=== PATIENT | female | born 1970 | race Caucasian/White ===

== ENCOUNTER 2017-06-16 18:35 | Emergency (ER) | payer OTHER ==
[2017-06-16 18:39] VITALS: BMI 31.6
[2017-06-16 18:54] VITALS: TEMP 98.7
--- NOTE | 2017-06-16 19:05 | PDOC ---
History of Present Illness - General History Source: Patient Exam Limitations: No Limitations - History of Present Illness Initial Comments: 06/16/17 19:45 The patient is a 46-year-old female, with a significant past medical history of HTN and hyperthyroidism, who presents to the ED with high blood pressure. Pt was seen at an urgent care today for a cough and her BP was noted to be high in the 200s. She reports that she has not taken her BP medication in 2 weeks since she ran out and was unable to refill her prescription due to insurance issues. Pt was able to burr picker her prescription prior to her arrival to the ED and took one dose of it. Pt reports that she feels hot. She denies any weakness or numbness. She denies any fever, chills, nausea, vomiting, diarrhea, or abdominal pain. She denies any shortness of breath or chest pain. The patient denies any shortness of breath or any other symptoms at this time. PAST MEDICAL HISTORY: HTN and hyperthyroidism PAST SURGICAL HISTORY: no significant history FAMILY HISTORY: no pertinent history SOCIAL HISTORY: Pt lives with family and is employed. MEDICATIONS: reviewed ALLERGIES: As per nursing notes ROS General: No fevers or chills, no weakness, no weight loss HEENT: No change in vision. No sore throat,. No ear pain CardioVascular: No chest pain or shortness of breath Respiratory: (+)cough. No wheezing. Gastrointestinal: no nausea, vomiting, diarrhea or constipation, No rectal bleeding Genitourinary: No dysuria, hematuria, or frequency Musculoskeletal: No joint or muscle pain or swelling Neurologic: No headache, vertigo, dizziness or loss of consciousness Psychiatric: nor depression Skin: No rashes or easy bruising Endocrine: no increased thirst or abnormal weight change Allergic: no skin or latex allergy All other systems reviewed and normal PE General: Well-nourished well-developed individual, no acute distress HEENT: Throat: Normal, tonsils normal, no erythema or exudate Neck: Supple, no meningeal signs, no lymphadenopathy Eyes::Pupils equal reactive and round, extraocular motion intact Chest: Nontender to palpation Cardiac: (+)2/6 systolic murmur. S1-S2 normal, regular rate and rhythm, no rubs or gallops Respiratory: Lungs clear to auscultation bilateral Abdomen: Soft, nondistended, normal bowel sounds, nontender to palpation diffusely Extremities: Warm, dry, no cyanosis, clubbing, or edema Skin: No rashes Neuro: Alert and oriented x3, nonfocal exam, grossly intact, normal gait Psych: Normal mood and affect <Sharyn Parra - Last Filed: 06/16/17 20:29> - History of Present Illness Initial Comments: 06/16/17 20:36 A portion of this note was documented by scribe services under my direction. I have reviewed the details of the note, within reason, and agree with the documentation. The case summary and management plan written by me. Assessment and plan: This is a 46-year-old female who comes in complaining of hypertension. Patient said she was sent here from the urgent care center where she had gone for evaluation of a upper respiratory tract infection. Patient said the urgent care center started her on doxycycline and gave her a prescription for prednisone. Patient has a history of hypertension and ran out of her medications 2 week. Patient got her prescription refilled prior to coming in and did take up one of her pills for hypertension. Patient blood pressure was initially high on arrival here and over the course of her stay here it declined from a high systolic of 245-180. Patient has no evidence of end organ damage. Patient otherwise has no complaints. Patient cardiogram that did show normal sinus rhythm with some minimal voltage criteria for LVH and a prolonged QT otherwise no acute ST-T wave changes. Patient's exam was normal with the exception of a systolic murmur which patient said she has had times many years. Patient given copy of her cardiogram. Patient reassured to that if she is restarts her medication that her blood pressure will improve however patient is due for a complete physical from her primary care physician and also was told to call her primary care doctor in the morning and get a appointment for a physical and to follow-up. Patient discharged home <Vernell Guerrero I - Last Filed: 06/16/17 20:42> - General Chief Complaint: Blood Pressure Problem Stated Complaint: HTN Time Seen by Provider: 06/16/17 19:01 Past History <Sharyn Parra - Last Filed: 06/16/17 20:29> - Past Medical History COPD: No HTN: Yes Thyroid Disease: Yes (hypothyroid) - Suicide/Smoking/Psychosocial Hx Smoking Status: No Smoking History: Never smoked Number of Cigarettes Smoked Daily: 0 Hx Alcohol Use: No Drug/Substance Use Hx: No Substance Use Type: None <Vernell Guerrero I - Last Filed: 06/16/17 20:42> - Past Medical History Allergies/Adverse Reactions: Allergies Allergy/AdvReac Type Severity Reaction Status Date / Time No Known Allergies Allergy Verified 06/16/17 18:36 Home Medications: Ambulatory Orders Valsartan [Diovan] 80 mg PO DAILY 06/16/17 Review of Systems - Review of Systems Able to Perform ROS?: Yes <Sharyn Parra - Last Filed: 06/16/17 20:29> *Physical Exam - Vital Signs Last Vital Signs Temp Pulse Resp BP Pulse Ox 98.7 F 102 H 18 217/95 97 06/16/17 18:36 06/16/17 18:36 06/16/17 18:36 06/16/17 18:36 06/16/17 18:36 <Sharyn Parra - Last Filed: 06/16/17 20:29> - Vital Signs Last Vital Signs Temp Pulse Resp BP Pulse Ox 98.7 F 102 H 18 217/95 97 06/16/17 18:36 06/16/17 18:36 06/16/17 18:36 06/16/17 18:36 06/16/17 18:36 <Vernell Guerrero I - Last Filed: 06/16/17 20:42> *DC/Admit/Observation/Transfer - Attestations Scribe Attestion: 06/16/17 19:53 Documentation prepared by Sharyn Parra, acting as medical center director for Vernell Guerrero MD. <Sharyn Parra - Last Filed: 06/16/17 20:29> - Discharge Dispostion Admit: No <Vernell Guerrero I - Last Filed: 06/16/17 20:42> Diagnosis at time of Disposition: Essential hypertension, Viral upper respiratory tract infection - Discharge Dispostion Disposition: HOME Condition at time of disposition: Stable - Referrals Referrals: Kendall Hernandez MD [Primary Care Provider] - - Patient Instructions Printed Discharge Instructions: DI for High Blood Pressure, How to Monitor Your Blood Pressure at Home Additional Instructions: Take your medication for your blood pressure as prescribed. You can also continue to take the Mucinex but avoid Robitussin and other over- the-counter cough medications. Take your medication at the urgent care center prescribed for you. Call your doctor in the morning and get an appointment for a complete physical. Return to the emergency department immediately with ANY new, persistent or worsening symptoms. Continue any medications as previously prescribed by your physician. You should follow up with your primary doctor as soon as possible regarding today's emergency department visit. . Please make sure your doctor reviews the results of your emergency evaluation. Thank you for coming to the Emergency Department today for your care. It was a pleasure to see you today. Please note that your evaluation is INCOMPLETE until you follow-up with your doctor. - Post Discharge Activity
[2017-06-16 20:29] VITALS: BP 180/93; PULSE 78
--- NOTE | 2017-06-17 09:32 | EKG ---
Test Reason : Blood Pressure : / mmHG Vent. Rate : 081 BPM Atrial Rate : 081 BPM P-R Int : 164 ms QRS Dur : 088 ms QT Int : 428 ms P-R-T Axes : 049 060 042 degrees QTc Int : 497 ms NORMAL SINUS RHYTHM MINIMAL VOLTAGE CRITERIA FOR LVH, MAY BE NORMAL VARIANT PROLONGED QT ABNORMAL ECG WHEN COMPARED WITH ECG OF 28-OCT-2011 10:10, NO SIGNIFICANT CHANGE WAS FOUND Confirmed by JEANCARLOS ORTIZ, KARLENE ([id number]) on 06/17/2017 9:31:33 AM Referred By: DR BUCKLEY Confirmed By:KARLENE ARSHAD MD
== END 2017-06-16 20:46 | disposition home or self-care (01) ==
LOC: FER 18:35
DX: I10 Essential (primary) hypertension (principal); J06.9 Acute upper respiratory infection, unspecified; E05.90 Thyrotoxicosis, unspecified without thyrotoxic crisis or storm
CPT/HCPCS: 93005; 99282-25

== ENCOUNTER 2018-03-31 19:25 | Emergency (ER) | payer OTHER ==
[2018-03-31 19:32] VITALS: TEMP 98.3; BMI 29.9
--- NOTE | 2018-03-31 20:17 | PDOC ---
History of Present Illness - General History Source: Patient Exam Limitations: No Limitations - History of Present Illness Initial Comments: 03/31/18 20:43 The patient is a 47 year old female with a significant past medical history of thyroid nodules and HTN who presents to the ER sent in by PCP, Dr. Hernandez, for blood work. Patient saw her PCP today who told her he was concerned about anemia and wanted her to come to the ER for further evaluation. Patient denies any history of anemia. Patient denies blood in the stool, or rectal bleeding. Denies easy bruising or excessive bleeding. Patient denies any shortness of breath. Patient states that from August 2017 up until January 2018 she was having heavy menstrual cycles, lasting 3 weeks at a time. Patient was prescribed a medication which she took for tens days and reports that her menstrual periods are regular again. Of note, patient is also complaining of left jaw pain. Patient reports her PCP thought it might be TMJ. Patient reports relief after taking motrin or advil. The patient denies chest pain, shortness of breath, headache, and dizziness. Denies fever, chills, nausea, vomit, diarrhea, and constipation. Denies dysuria, frequency, urgency, and hematuria. Allergies: NKA Past surgical history: None reported. Social history: No reported alcohol, drug, or cigarette use. PCP: Dr. Hernandez <Elinor Mancini - Last Filed: 03/31/18 23:41> <Sherrie Keller - Last Filed: 04/01/18 06:12> - General Chief Complaint: Edema Stated Complaint: SENT BY PMD/BLOOD WORK Time Seen by Provider: 03/31/18 19:40 Past History <Elinor Mancini - Last Filed: 03/31/18 23:41> - Past Medical History COPD: No HTN: Yes Thyroid Disease: Yes (hypothyroid) - Suicide/Smoking/Psychosocial Hx Smoking Status: No Smoking History: Unknown if ever smoked Have you smoked in the past 12 months: No Number of Cigarettes Smoked Daily: 0 Information on smoking cessation initiated: No Hx Alcohol Use: No Drug/Substance Use Hx: No Substance Use Type: None <Sherrie Keller - Last Filed: 04/01/18 06:12> - Past Medical History Allergies/Adverse Reactions: Allergies Allergy/AdvReac Type Severity Reaction Status Date / Time No Known Allergies Allergy Verified 12/12/17 18:36 Home Medications: Ambulatory Orders Valsartan [Diovan] 80 mg PO DAILY 06/16/17 Diclofenac Sodium [Voltaren -] 75 mg PO BID PRN #20 tablet. 03/31/18 Ferrous Sulfate [Feosol] 325 mg PO DAILY #30 tablet 03/31/18 Review of Systems - Review of Systems Able to Perform ROS?: Yes Comments:: 03/31/18 20:44 All systems are reviewed and negative except as noted in the HPI <Elinor Mancini - Last Filed: 03/31/18 23:41> *Physical Exam - Vital Signs Last Vital Signs Temp Pulse Resp BP Pulse Ox 98.3 F 84 14 196/88 H 100 03/31/18 19:29 03/31/18 19:29 03/31/18 19:29 03/31/18 19:29 03/31/18 19:29 - Physical Exam Comments: 03/31/18 20:44 GENERAL: Awake, alert, and fully oriented, in no acute distress HEAD: No signs of trauma EYES: PERRLA, EOMI, sclera anicteric, conjunctiva clear ENT: Auricles normal inspection, hearing grossly normal, nares patent, oropharynx clear without exudates. Moist mucosa (+) Minimal tenderness of her TMJ joint. NECK: Normal ROM, supple, no lymphadenopathy, JVD, or masses LUNGS: Breath sounds equal, clear to auscultation bilaterally. No wheezes, and no crackles HEART: (+) 3/7 systolic murmur best heard over the right and left intercostal spaces radiating to the bilateral carotid arteries. Regular rate and rhythm, normal S1 and S2, no rubs or gallops ABDOMEN: Soft, nontender, normoactive bowel sounds. No guarding, no rebound. No masses EXTREMITIES: Normal range of motion, no edema. No clubbing or cyanosis. No cords, erythema, or tenderness NEUROLOGICAL: Cranial nerves II through XII grossly intact. Normal speech, normal gait SKIN: Warm, Dry, normal turgor, no rashes or lesions noted. <Elinor Mancini - Last Filed: 03/31/18 23:41> - Vital Signs Last Vital Signs Temp Pulse Resp BP Pulse Ox 98.3 F 84 14 196/88 H 100 03/31/18 19:29 03/31/18 19:29 03/31/18 19:29 03/31/18 19:29 03/31/18 19:29 <Sherrie Keller - Last Filed: 04/01/18 06:12> ED Treatment Course - LABORATORY CBC & Chemistry Diagram: 03/31/18 21:10 03/31/18 21:11 <Elinor Mancini - Last Filed: 03/31/18 23:41> - LABORATORY CBC & Chemistry Diagram: 03/31/18 21:10 03/31/18 21:11 <Sherrie Keller - Last Filed: 04/01/18 06:12> Medical Decision Making - Medical Decision Making Documentation has been prepared under my direction and personally reviewed by me in its entirety. I attest that this documented accurately reflects all work, treatment, procedures and medical decision making performed by me. As noted above, this 47-year-old woman with a history of hypertension/thyroid nodules was sent to the ER by her PMD, Dr. Hernandez because he suspected that she might be anemic. Patient has had a history of multiple heavy menstrual cycles earlier this year. Exam as noted. Laboratory workup does reveal mild to moderate microcytic anemia with hemoglobin of 8.7/hematocrit 28.7; MCV69.7 12-lead electrocardiogram was performed and interpreted by me. This showed normal sinus rhythm at 84 bpm; there was borderline LVH but no other abnormalities. Remainder of the laboratory workup, including troponin and chemistry profile, this essentially normal. Bilateral TMJ x-ray studies were performed to rule out acute pathology in the area of the left mandibular angle (where patient has significant pain). No significant abnormality is seen. (Interpretation by of the radiology staff). Results discussed with Dr. Hernandez. The patient will be referred to gauntlet pairer, Dr. Avila. Meanwhile, as per Dr. Hernandez, iron supplementation will be started along with vitamin C. Patient will also follow up with cardiology for control of her hypertension. Although the patient has significant hypertension, she had not seen her PMD since July of this year. During that time, she was on a lower dose of Valsartan. It is very likely that blood pressure readings tonight are her baseline. Since she has just been increased to 160 mg of valsartan and (twice the dose she had been taking earlier this year), her blood pressure will be decreased gradually in an incremental fashion. <Sherrie Keller - Last Filed: 04/01/18 06:12> *DC/Admit/Observation/Transfer - Attestations Scribe Attestion: 03/31/18 20:45 Documentation prepared by Elinor Mancini, acting as medical record librarian for Sherrie Keller MD. <Elinor Mancini - Last Filed: 03/31/18 23:41> <Sherrie Keller - Last Filed: 04/01/18 06:12> Diagnosis at time of Disposition: Microcytic anemia, Jaw pain - Discharge Dispostion Disposition: HOME Condition at time of disposition: Stable - Prescriptions Prescriptions: Diclofenac Sodium [Voltaren -] 75 mg PO BID PRN #20 tablet. PRN Reason: Pain Ferrous Sulfate [Feosol] 325 mg PO DAILY #30 tablet - Referrals Referrals: Kendall Hernandez MD [Primary Care Provider] - Berny Avila MD [Staff Physician] - Jake Chin MD [Staff Physician] - - Patient Instructions Printed Discharge Instructions: Iron-Deficiency Anemia Additional Instructions: Ferrous sulfate 325 mg daily/jeanmarie C 500 mg daily Call gauntlet pairer (Dr. Avila) tomorrow to arrange follow-up as discussed Call ENT doctor (Dr. Chin group) tomorrow to arrange follow-up Diclofenac 75 mg twice a day as needed for jaw pain (take with food Continue valsartan and as prescribed by Dr. Hernandez Follow-up with product safety lead as suggested by Dr. Hernandez Follow-up with Dr. Hernandez within the next week Return to the ER if you have severe pain or weakness - Post Discharge Activity
[2018-03-31 21:27] LABS: HEMATOCRIT 28.7 % (32.4-45.2); HEMOGLOBIN 8.7 GM/dl (10.7-15.3); MCH 21.3 pg (25.7-33.7); MCHC 30.5 g/dl (32.0-36.0); MEAN CELL VOLUME 69.7 fl (80-96); MEAN PLT VOLUME 8.6 fl (7.5-11.1); PLATELET COUNT 350 K/MM3 (134-434); RBC 4.11 M/mm3 (3.60-5.2); RDW 18.6 % (11.6-15.6); WHITE BLOOD COUNT 9.7 K/mm3 (4.0-10.8)
[2018-03-31 21:30] LABS: INR 0.99 (0.82-1.09); PROTHROMBIN TIME (PATIENT) 11.1 SEC (10.2-13.0)
[2018-03-31 21:35] LABS: ALBUMIN 3.8 g/dl (3.5-5.0); ALK PHOS 50 U/L (32-92); ANION GAP 6 MMOL/L (8-16); BILIRUBIN,TOTAL 0.4 mg/dl (0.2-1.0); BLOOD UREA NITROGEN 12 mg/dl (7-18); CALCIUM 8.5 mg/dl (8.4-10.2); CHLORIDE 105 mmol/L (98-107); CO2 27 mmol/L (22-28); CREATININE 0.8 mg/dl (0.6-1.3); GLUCOSE,RANDOM 92 mg/dl (74-106); POTASSIUM 3.7 mmol/L (3.5-5.1); SGOT/AST 23 U/L (10-42); SGPT/ALT 24 U/L (10-40); SODIUM 138 mmol/L (136-145); TOT PROT 7.1 g/dl (6.4-8.3)
[2018-03-31 22:01] LABS: PLATELET ESTIMATE SLT INCREASE
[2018-03-31 22:03] LABS: ANISOCYTOSIS 2+
[2018-03-31 22:27] LABS: HCG,QUALITATIVE URINE Negative
[2018-03-31 22:31] LABS: PH,URINE 7.5 (4.5-8); URINE APPEARANCE Clear; URINE BILIRUBIN Negative (NEGATIVE); URINE COLOR Pink; URINE GLUCOSE (UA) Negative (NEGATIVE); URINE KETONE Negative (NEGATIVE); URINE LEUK ESTERASE TRACE (NEGATIVE); URINE NITRITE Negative (NEGATIVE); URINE PROTEIN Negative (NEGATIVE); URINE UROBILINOGEN 0.2 (0.2-1.0)
[2018-03-31 22:36] LABS: URINE RBC MANY /hpf (0-3)
[2018-03-31 22:37] LABS: EPI CELLS FEW /HPF; URINE BACTERIA FEW /hpf (NEGATIVE)
[2018-03-31 23:41] VITALS: BP 156/100; PULSE 76
--- NOTE | 2018-04-01 09:39 | EKG ---
Test Reason : Blood Pressure : / mmHG Vent. Rate : 075 BPM Atrial Rate : 075 BPM P-R Int : 162 ms QRS Dur : 090 ms QT Int : 408 ms P-R-T Axes : 036 066 049 degrees QTc Int : 455 ms NORMAL SINUS RHYTHM MINIMAL VOLTAGE CRITERIA FOR LVH, MAY BE NORMAL VARIANT BORDERLINE ECG WHEN COMPARED WITH ECG OF 16-JUN-2017 20:17, NO SIGNIFICANT CHANGE WAS FOUND Confirmed by DONNY SUTHERLAND MD ([id number]) on 04/01/2018 9:38:42 AM Referred By: MD MCDANIELS Confirmed By:DONNY SUTHERLAND MD
== END 2018-03-31 23:42 | disposition home or self-care (01) ==
LOC: FER 19:25
DX: D50.9 Iron deficiency anemia, unspecified (principal); R68.84 Jaw pain; I10 Essential (primary) hypertension; E04.1 Nontoxic single thyroid nodule
CPT/HCPCS: 36415; 70330-TC-FY; 80053; 81003; 81015; 82550; 84484; 84703; 85025; 85610; 93005; 99283-25

== ENCOUNTER → 2022-09-11 | Day surgery (SDC) | payer OTHER | END | disposition home or self-care (01) | LOC: JRADIR 09:33 | PROVIDERS: ATTEND Internal Medicine Endocrinology, Diabetes & Metabolism | PROC: 0GBG3ZX Excision of Left Thyroid Gland Lobe, Percutaneous Approach, Diagnostic (ICD-10-PCS; principal; 2022-09-11) | DX: E04.1 Nontoxic single thyroid nodule (principal) | CPT/HCPCS: 10005; 76942; 88173; 88305-TC ==

== ENCOUNTER 2024-08-18 21:17 | Observation (INO) | payer OTHER ==
[2024-08-18 21:21] VITALS: BMI 26.6
[2024-08-18] MEDS ORDERED: ONDANSETRON 4 MG/2 ML VIAL ONE (22:17)
[2024-08-18] MEDS ORDERED: FAMOTIDINE 20 MG/50 ML IVPB 20 MG/50 ML MG IVPB ONE (22:18)
[2024-08-18] MEDS: SODIUM CHLORIDE 0.9% 500 ML INFUS.BAG IV ONE (22:23)
[2024-08-18] MEDS: ONDANSETRON 4 MG/2 ML VIAL IVPB ONE (22:24)
[2024-08-18] MEDS: FAMOTIDINE 20 MG/50 ML IVPB 20 MG/50 ML MG IVPB ONE (22:24)
[2024-08-18 22:26] LABS: BASO % 0.3 % (0-2.0); EOS % 0.3 % (0-4.5); HEMATOCRIT 42.4 % (32.4-45.2); HEMOGLOBIN 14.2 GM/dL (10.7-15.3); MCH 30.1 pg (25.7-33.7); MCHC 33.4 g/dl (32.0-36.0); MEAN CELL VOLUME 90.1 fl (80-96); MEAN PLT VOLUME 9.2 fl (7.5-11.1); MONO % 5.8 % (3.8-10.2); NEUT % 80.6 % (42.8-82.8); PLATELET COUNT 316 10^3/uL (134-434); RDW 12.9 % (11.6-15.6); WHITE BLOOD COUNT 15.5 K/mm3 (4.0-10.0)
[2024-08-18 22:35] LABS: INR 0.95 (0.83-1.09); PROTHROMBIN TIME (PATIENT) 10.5 SEC (9.7-13.0)
[2024-08-18 22:37] LABS: ACTIVATED PTT 24.4 SECONDS (25.2-36.5)
[2024-08-18 22:43] LABS: BLOOD UREA NITROGEN 25.3 mg/dL (7-18); MAGNESIUM 2.3 mg/dL (1.8-2.4)
[2024-08-18 22:46] LABS: CREATININE 1.1 mg/dL (0.55-1.3); PHOSPHOROUS 3.9 mg/dL (2.5-4.9)
[2024-08-18 22:48] LABS: BILIRUBIN,TOTAL 0.5 mg/dL (0.2-1); TOT PROT 7.5 g/dl (6.4-8.2)
[2024-08-18 23:10] LABS: LACTIC ACID 2.3 mmol/L (0.4-2.0)
[2024-08-19 00:19] LABS: POTASSIUM 3.9 mmol/L (3.5-5.1)
[2024-08-19 00:21] LABS: CALCIUM 9.3 mg/dL (8.5-10.1)
[2024-08-19 00:22] LABS: ALBUMIN 3.7 g/dl (3.4-5.0); BLOOD UREA NITROGEN 24.3 mg/dL (7-18); MAGNESIUM 2.1 mg/dL (1.8-2.4)
[2024-08-19] MEDS: SODIUM CHLORIDE 0.9% 500 ML INFUS.BAG IV ONE (00:23)
[2024-08-19 00:27] LABS: BILIRUBIN,TOTAL 0.7 mg/dL (0.2-1); TOT PROT 7.2 g/dl (6.4-8.2)
[2024-08-19 00:29] LABS: LACTIC ACID 3.1 mmol/L (0.4-2.0)
[2024-08-19] MEDS ORDERED: MAG HYDROX/AL HYDROX/SIMETH 30 ML UNIT-DOSE CUP ONE (01:14)
[2024-08-19] MEDS: MAG HYDROX/AL HYDROX/SIMETH -MYLANTA- ORAL SUSPENSION PO ONE (01:21)
[2024-08-19 02:25] LABS: EPI CELLS 6 /uL (0-25.1); HYALINE CASTS 0 /uL (0-3.1); URINE APPEARANCE CLEAR; URINE BACTERIA 289 /uL (0-1359); URINE BILIRUBIN NEGATIVE (NEGATIVE); URINE COLOR YELLOW; URINE GLUCOSE (UA) NEGATIVE (NEGATIVE); URINE KETONE NEGATIVE (NEGATIVE); URINE LEUK ESTERASE TRACE (NEGATIVE); URINE NITRITE NEGATIVE (NEGATIVE); URINE PROTEIN NEGATIVE (NEGATIVE); URINE RBC 10 /uL (0-23.9); URINE UROBILINOGEN 0.2 mg/dL (0.2-1.0); URINE WBC 6 /uL (0-25.8)
[2024-08-19 02:55] LABS: POTASSIUM 3.6 mmol/L (3.5-5.1)
[2024-08-19 02:57] LABS: CALCIUM 8.5 mg/dL (8.5-10.1)
[2024-08-19 02:58] LABS: ALBUMIN 3.4 g/dl (3.4-5.0); BLOOD UREA NITROGEN 21.2 mg/dL (7-18)
[2024-08-19 03:01] LABS: CREATININE 0.9 mg/dL (0.55-1.3)
[2024-08-19 03:03] LABS: BILIRUBIN,TOTAL 0.6 mg/dL (0.2-1)
[2024-08-19 03:09] LABS: TOT PROT 6.6 g/dl (6.4-8.2)
[2024-08-19 03:09] LABS: LACTIC ACID 3.3 mmol/L (0.4-2.0)
[2024-08-19] MEDS ORDERED: PIPERACILLIN/TAZOB 4.5 GM 4.5 GM/100 ML BAG IVPB ONE (06:05)
[2024-08-19] MEDS: PIPERACILLIN/TAZOB 4.5 GM 4.5 GM in DEXTROSE 5%-WATER 100 ML IVPB ONE (06:12)
[2024-08-19 06:49] VITALS: RESP 17; TEMP 98.2
[2024-08-19] MEDS: DEXTROSE 5%-0.45% SALINE 1,000 ML IV SCH (06:57)
[2024-08-19 11:17] LABS: BASO % 0.4 % (0-2.0); HEMATOCRIT 39.2 % (32.4-45.2); HEMOGLOBIN 12.7 GM/dL (10.7-15.3); LYMPH % 16.8 % (8-40); MCH 29.4 pg (25.7-33.7); MCHC 32.5 g/dl (32.0-36.0); MEAN CELL VOLUME 90.5 fl (80-96); MEAN PLT VOLUME 9.1 fl (7.5-11.1); MONO % 6.6 % (3.8-10.2); NEUT % 75.2 % (42.8-82.8); PLATELET COUNT 277 10^3/uL (134-434); RBC 4.33 M/mm3 (3.60-5.2); RDW 12.7 % (11.6-15.6); WHITE BLOOD COUNT 8.8 K/mm3 (4.0-10.0)
[2024-08-19 11:36] LABS: POTASSIUM 3.7 mmol/L (3.5-5.1)
[2024-08-19 11:38] LABS: CALCIUM 8.7 mg/dL (8.5-10.1)
[2024-08-19 11:39] LABS: ALBUMIN 3.4 g/dl (3.4-5.0); BLOOD UREA NITROGEN 15.7 mg/dL (7-18)
[2024-08-19 11:42] LABS: CREATININE 0.9 mg/dL (0.55-1.3)
[2024-08-19 11:43] LABS: BILIRUBIN,TOTAL 0.7 mg/dL (0.2-1)
[2024-08-19 11:44] LABS: TOT PROT 6.6 g/dl (6.4-8.2)
[2024-08-19] MEDS: POTASSIUM CHLORIDE 10 MEQ in SODIUM CHLORIDE 1,000 ML IVPB SCH (13:03)
[2024-08-19] MEDS: THIAMINE HCL 200 MG/2 ML VIAL IVPB SCH (13:16)
[2024-08-19] MEDS ORDERED: PIPERACILLIN/TAZOB 4.5 GM 4.5 GM in DEXTROSE 5%-WATER 100 ML IVPB SCH (15:00)
[2024-08-19 16:49] VITALS: BP 135/83; PULSE 74
== END 2024-08-19 18:35 | disposition home or self-care (01) ==
LOC: JER 21:17 → JERBED 08-19 06:26 → J4W 08-19 09:24
PROVIDERS: ADMIT Family Medicine; ATTEND Family Medicine
PROC: 3E033GC Introduction of Other Therapeutic Substance into Peripheral Vein, Percutaneous Approach (ICD-10-PCS; principal; 2024-08-19)
PROC: 3E03329 Introduction of Other Anti-infective into Peripheral Vein, Percutaneous Approach (ICD-10-PCS; 2024-08-19)
PROC: 3E0337Z Introduction of Electrolytic and Water Balance Substance into Peripheral Vein, Percutaneous Approach (ICD-10-PCS; 2024-08-19)
DX: E87.20 Acidosis, unspecified (principal); D50.9 Iron deficiency anemia, unspecified; E06.3 Autoimmune thyroiditis; K80.20 Calculus of gallbladder without cholecystitis without obstruction; R93.89 Abnormal findings on diagnostic imaging of other specified body structures; I35.0 Nonrheumatic aortic (valve) stenosis; I10 Essential (primary) hypertension; E66.9 Obesity, unspecified; R01.1 Cardiac murmur, unspecified; R68.84 Jaw pain; J06.9 Acute upper respiratory infection, unspecified; I45.81 Long QT syndrome
CPT/HCPCS: 0241U-QW; 36415; 71045-TC-FY; 74174-TC; 76705-TC; 80053; 81003; 82550; 83605; 83690; 83735; 84100; 84439; 84443; 84484; 84703; 85025; 85610; 85730; 87040; 87086; 93005; 93010; 93306-TC; 93880-TC; 96365; 96367; 96375; 99285-25; G0378